=== PATIENT | male | born 1990 | race Caucasian/White ===

== ENCOUNTER 2018-02-08 10:23 | Emergency (ER) | payer BC, OTHER ==
[2018-02-08] MEDS ORDERED: Tetracaine HCl/PF 0.5% 4 ML Bottle ONE ×2 (10:46→10:50)
[2018-02-08] MEDS ORDERED: Tetracaine HCl/PF 0.5% 4 ML Bottle EYERT ONE (10:46)
--- NOTE | 2018-02-08 11:20 | EDM.PDOC ---
ED HPI GENERAL MEDICAL PROBLEM - General Chief Complaint: Eye Problems Stated Complaint: right eye pain Time Seen by Provider: 02/08/18 10:35 Source of Information: Reports: Patient History Limitations: Reports: No Limitations - History of Present Illness INITIAL COMMENTS - FREE TEXT/NARRATIVE: Patient is a 27-year-old who states that last night he went to sleep and woke up with his right eye swollen and painful. 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 [No Known Home Meds] 02/08/18 [History] Past Medical History - Past Health History Medical/Surgical History: Denies Medical/Surgical History Social & Family History - Tobacco Use Smoking Status *Q: Current Every Day Smoker Years of Tobacco use: 13 Packs/Tins Daily: 1 Second Hand Smoke Exposure: No - Caffeine Use Caffeine Use: Reports: Coffee, Soda - Alcohol Use Days Per Week of Alcohol Use: 5 Number of Drinks Per Day: 4 Total Drinks Per Week: 20 - Recreational Drug Use Recreational Drug Use: Yes Drug Use in Last 12 Months: Yes Recreational Drug Type: Reports: Marijuana/Hashish ED ROS GENERAL - Review of Systems Review Of Systems: See Below HEENT: Reports: Contact Lenses, Eye Pain, Vertigo. Denies: Vision Change Respiratory: Reports: No Symptoms Cardiovascular: Reports: No Symptoms Endocrine: Reports: No Symptoms GI/Abdominal: Reports: No Symptoms : Reports: No Symptoms Musculoskeletal: Reports: No Symptoms Skin: Reports: No Symptoms Neurological: Reports: No Symptoms Psychiatric: Reports: No Symptoms Hematologic/Lymphatic: Reports: No Symptoms ED EXAM GENERAL W FULL EYE - Physical Exam Exam: See Below Exam Limited By: No Limitations General Appearance: Alert, WD/WN, No Apparent Distress Pupils: Normal Accommodation Ears: Normal External Exam, Normal Canal, Hearing Grossly Normal, Normal TMs Nose: Normal Inspection, Normal Mucosa, No Blood Throat/Mouth: Normal Inspection, Normal Lips, Normal Teeth, Normal Gums, Normal Oropharynx, Normal Voice, No Airway Compromise Head: Atraumatic, Normocephalic Neck: Normal Inspection, Supple, Non-Tender, Full Range of Motion Respiratory/Chest: No Respiratory Distress, Lungs Clear, Normal Breath Sounds, No Accessory Muscle Use, Chest Non-Tender Cardiovascular: Normal Peripheral Pulses, Regular Rate, Rhythm, No Edema, No Gallop, No JVD, No Murmur, No Rub GI/Abdominal: Normal Bowel Sounds, Soft, Non-Tender, No Organomegaly, No Distention, No Abnormal Bruit, No Mass (Male) Exam: No Hernia, Normal Inspection, Normal Prostate, Circumcised (Female) Exam: Normal External Exam, Normal Speculum Exam, Normal Bimanual Exam Rectal (Males) Exam: Normal Exam, Normal Rectal Tone, Prostate Normal Rectal (Female) Exam: Normal Exam, Normal Rectal Tone Back Exam: Normal Inspection, Full Range of Motion, NT Extremities: Normal Inspection, Normal Range of Motion, Non-Tender, Normal Capillary Refill, No Pedal Edema Neurological: Alert, Oriented, CN II-XII Intact, Normal Cognition, Normal Gait, Normal Reflexes, No Motor/Sensory Deficits Psychiatric: Normal Affect, Normal Mood Skin Exam: Warm, Dry, Intact, Normal Color, No Rash Lymphatic: No Adenopathy ED EYE w/ Add Procedure - Eye Procedure Alcaine Drops Administered: Yes (Tetracaine) Eye Irrigated w/ Saline (ccs): 20 Antibiotic Oinment/Drps Admin: Right Eye - Additional/Other Procedure(s) Other (Free Text) Procedure(s) [Text1]: Patient was laid on the gurney tetracaine was applied to right eye after appropriate levels of anesthesia the eye was examined with Wood lamp and fluorescein a corneal abrasion was noted at 9:00 this was irrigated profusely with saline afterwards gentek was applied and the eye cover with patch patient tolerated well the procedure will be sent home if in 24 hours she still in pain referred to ophthalmology Course - Vital Signs Last Recorded V/S: Last Vital Signs Temp 98.0 F 02/08/18 10:24 Pulse 85 02/08/18 10:24 Resp 16 02/08/18 10:24 BP 151/97 H 02/08/18 10:24 Pulse Ox 100 02/08/18 10:24 - Orders/Labs/Meds Orders: Active Orders 24 hr Category Date Time Status Gentamicin [Gentak 0.3% Ophth Oint] Med 02/08/18 12:00 Ordered See Dose Instructions EYERT QID Meds: Medications Discontinued Medications Generic Name Dose Route Start Last Admin Trade Name Wendi PRN Reason Stop Dose Admin Tetracaine HCl Confirm 02/08/18 10:46 Tetracaine 0.5% Steri-Unit Sanjana Administered 02/08/18 10:47 Dose 4 ml .ROUTE .STK-MED ONE Departure - Departure Time of Disposition: 11:20 Disposition: Home, Self-Care 01 Condition: Fair Clinical Impression: Corneal abrasion - Discharge Information Referrals: PCP,Unknown [Primary Care Provider] - Care Plan Goals: Patient had a corneal abrasion will be sent home with Genentech ointment apply half a centimeter 4 times a day and eye patch and Tylenol No. 3 2 tablets every 6 hours for pain this was given to him in the ER - My Orders Last 24 Hours: My Active Orders 02/08/18 12:00 Gentamicin [Gentak 0.3% Ophth Oint] See Dose Instructions EYERT QID - Assessment/Plan Last 24 Hours: My Active Orders 02/08/18 12:00 Gentamicin [Gentak 0.3% Ophth Oint] See Dose Instructions EYERT QID
== END 2018-02-08 11:35 | disposition home or self-care (01) ==
LOC: LL.ED 10:23
DX: S05.01XA Injury of conjunctiva and corneal abrasion without foreign body, right eye, initial encounter (principal); F17.210 Nicotine dependence, cigarettes, uncomplicated; Z91.010 Allergy to peanuts; X58.XXXA Exposure to other specified factors, initial encounter
CPT/HCPCS: 99283; A9270

== ENCOUNTER 2020-03-08 09:24 | Emergency (ER) | payer BC ==
[2020-03-08 10:05] LABS: CHLORIDE,CL 108 mmol/L (98-107); SODIUM,NA 142 mmol/L (136-145)
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
[2020-03-08] MEDS: Thiamine 200 MG/2 ML MDV IM ONE (11:40)
== END 2020-03-08 12:05 | disposition home or self-care (01) ==
LOC: LL.ED 09:24
DX: F32.9 Major depressive disorder, single episode, unspecified (principal); F10.10 Alcohol abuse, uncomplicated; F15.10 Other stimulant abuse, uncomplicated; F41.9 Anxiety disorder, unspecified; F17.210 Nicotine dependence, cigarettes, uncomplicated; Z91.010 Allergy to peanuts; Z79.899 Other long term (current) drug therapy
CPT/HCPCS: 36415; 80053; 80307; 85025; 96372; 99284; J3411

== ENCOUNTER 2020-06-29 20:15 | Emergency (ER) | payer BC ==
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
[2020-06-29] MEDS ORDERED: Sodium Chloride 0.9% 10 ML Syringe FLUSH PRN (20:35)
[2020-06-29] MEDS ORDERED: Famotidine 20 MG/2 ML SDV IVPUSH ONE (20:35)
[2020-06-29 20:59] LABS: PTT,PARTIAL THROMBOPLSTIN TIME 23.8 SEC (24.5-32.8)
[2020-06-29] MEDS ORDERED: Rocuronium 100 MG/10 ML MDV ONE (21:08)
[2020-06-29] MEDS ORDERED: LORazepam 2 MG/ML SDV ONE ×2 (21:08→21:25)
[2020-06-29] MEDS ORDERED: Metoprolol Tartrate 5 MG/5 ML SDV ONE ×2 (21:08→21:57)
[2020-06-29] MEDS ORDERED: Midazolam 1 MG/ML 2 ML SDV ONE (21:08)
[2020-06-29] MEDS ORDERED: Famotidine 20 MG/2 ML SDV ONE (21:08)
[2020-06-29 21:09] LABS: CHLORIDE,CL 101 mmol/L (98-107); SODIUM,NA 139 mmol/L (136-145)
[2020-06-29] MEDS ORDERED: NS + KCl 20mEq/L 1,000 ML IV SCH (21:15)
[2020-06-29] MEDS ORDERED: LORazepam 2 MG/ML SDV IVPUSH ONE (21:20)
[2020-06-29] MEDS ORDERED: NS + KCl 20mEq/L 1,000 ML IV ONE (21:22)
[2020-06-29] MEDS ORDERED: Succinylcholine 200 MG/10 ML MDV ONE (21:35)
[2020-06-29] MEDS ORDERED: Midazolam 1 MG/ML 2 ML SDV IVPUSH ONE (21:37)
[2020-06-29] MEDS ORDERED: Succinylcholine 200 MG/10 ML MDV IV ONE (21:37)
[2020-06-29] MEDS ORDERED: Metoprolol Tartrate 5 MG/5 ML SDV IVPUSH ONE (21:55)
[2020-06-30] MEDS ORDERED: Rocuronium 100 MG/10 ML MDV IVPUSH ONE (21:48)
== END 2020-06-29 22:45 ==
LOC: LL.ED 20:15
DX: T71.162A Asphyxiation due to hanging, intentional self-harm, initial encounter (principal); F10.10 Alcohol abuse, uncomplicated; F15.10 Other stimulant abuse, uncomplicated; F41.8 Other specified anxiety disorders; E87.6 Hypokalemia; R79.89 Other specified abnormal findings of blood chemistry; R74.0 Nonspecific elevation of levels of transaminase and lactic acid dehydrogenase [LDH]; E79.0 Hyperuricemia without signs of inflammatory arthritis and tophaceous disease; R79.1 Abnormal coagulation profile; E83.41 Hypermagnesemia; R73.9 Hyperglycemia, unspecified; R00.0 Tachycardia, unspecified; R03.0 Elevated blood-pressure reading, without diagnosis of hypertension; F32.9 Major depressive disorder, single episode, unspecified; F17.210 Nicotine dependence, cigarettes, uncomplicated; Z91.010 Allergy to peanuts; Z79.899 Other long term (current) drug therapy; S50.812A Abrasion of left forearm, initial encounter; Y90.8 Blood alcohol level of 240 mg/100 ml or more
CPT/HCPCS: 31500; 36415; 43752; 70450; 71045; 72125; 80053; 80307; 82550; 82553; 83605; 83735; 83880; 84443; 84484; 84550; 85025; 85379; 85610; 85730; 92950; 93005; 96365; 96375; 99285; J0330; J2060; J2250; J3480; J3490; 93010

== ENCOUNTER 2021-07-14 14:37 | Emergency (ER) | payer BC, MEDICAID ==
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
== END 2021-07-14 15:45 | disposition home or self-care (01) ==
LOC: LL.ED 14:37
DX: S93.402A Sprain of unspecified ligament of left ankle, initial encounter (principal); I10 Essential (primary) hypertension; F17.200 Nicotine dependence, unspecified, uncomplicated; Z91.010 Allergy to peanuts; X50.1XXA Overexertion from prolonged static or awkward postures, initial encounter
CPT/HCPCS: 73610-LT; 99283-25; 99284

== ENCOUNTER 2024-04-06 08:30 | Emergency (ER) | payer BC ==
[2024-04-06] MEDS ORDERED: Sodium Chloride 0.9% 10 ML Syringe FLUSH PRN (08:49)
[2024-04-06 09:07] LABS: BASOPHILS ABSOLUTE AUTO 0.06 K/uL (0.00-0.20); BASOPHILS PERCENT AUTO 0.6 % (0.0-2.0); EOSINOPHILS PERCENT AUTO 9.3 % (0.0-5.0); HEMATOCRIT 50.4 % (39.0-49.0); LYMPHOCYTES ABSOLUTE AUTO 2.68 K/uL (0.50-3.50); LYMPHOCYTES PERCENT AUTO 24.8 % (10.0-50.0); MEAN CORPUSCULAR HEMOGLOBIN 30.4 pg (28.2-33.3); MEAN CORPUSCULAR HGB CONC 33.7 g/dL (31.7-36.0); MEAN CORPUSCULAR VOLUME 90.2 fL (84.0-98.0); MONOCYTES ABSOLUTE AUTO 0.78 K/uL (0.00-1.00); MONOCYTES PERCENT AUTO 7.2 % (2.0-14.0); NEUTROPHILS ABSOLUTE AUTO 6.27 K/uL (1.40-7.00); NEUTROPHILS PERCENT AUTO 58.1 % (45.0-80.0); PLATELET COUNT,PLT 290 K/uL (150-350); RED BLOOD CELL COUNT 5.59 M/uL (4.33-5.41); RED CELL DISTRIBUTION WIDTH 13.6 % (11.2-14.1); WHITE BLOOD CELL COUNT,WBC 10.8 K/uL (4.0-10.2)
[2024-04-06 09:31] LABS: ALBUMIN 3.4 g/dL (3.4-5.0); ANION GAP 9.7 meq/L (7-15); BILIRUBIN TOTAL 0.4 mg/dL (0.2-1.0); CALCIUM 8.6 mg/dL (8.5-10.1); CARBON DIOXIDE,CO2 25.3 mmol/L (21.0-32.0); CREATININE 0.89 mg/dL (0.51-1.17); EST CRCL DRUG DOSING (CG) 126.91 mL/min; POTASSIUM,K 3.9 mmol/L (3.5-5.1); PROTEIN TOTAL,TP 7.2 g/dL (6.4-8.2)
== END 2024-04-06 10:15 | disposition home or self-care (01) ==
LOC: LL.ED 08:30
DX: R61 Generalized hyperhidrosis (principal); R68.83 Chills (without fever); I10 Essential (primary) hypertension; F17.210 Nicotine dependence, cigarettes, uncomplicated; Z79.899 Other long term (current) drug therapy; Z91.010 Allergy to peanuts
CPT/HCPCS: 36415; 71046; 80053; 83690; 84484; 85025; 85379; 93005; 99285